=== PATIENT | male | born 1955 | race Caucasian/White ===

== ENCOUNTER 2023-09-21 14:45 | Inpatient (IN) | payer OTHER ==
[2023-09-21 16:39] VITALS: BMI 30.2
[2023-09-21] MEDS ORDERED: guaiFENesin 600 MG TABLET.ER (FP) PO PRN (19:11)
[2023-09-21] MEDS ORDERED: IBUPROFEN 400 MG TABLET (FP) PO PRN (19:11)
[2023-09-21] MEDS ORDERED: NICOTINE POLACRILEX 2 MG GUM BUC PRN (19:11)
[2023-09-21] MEDS ORDERED: BISMUTH SUBSALICYLATE 524 MG/30 ML PO PRN (19:11)
[2023-09-21] MEDS ORDERED: MAGNESIUM HYDROX 2400MG/30ML ORAL SUSPENSION 30 ML CUP PO PRN (19:11)
[2023-09-21] MEDS ORDERED: ACETAMINOPHEN 325 MG TABLET (FP) PO PRN (19:11)
[2023-09-21] MEDS ORDERED: BENZONATATE 200 MG CAPSULE PO PRN (19:11)
[2023-09-21] MEDS ORDERED: IBUPROFEN 600 MG TABLET (FP) PO PRN (19:11)
[2023-09-21] MEDS ORDERED: MAG HYDROX/AL HYDROX/SIMETH 30 ML UNIT-DOSE CUP PO PRN (19:11)
[2023-09-21] MEDS ORDERED: P-EPHED 60MG/TRIPROLIDI 2.5MG TABLET PO PRN (19:11)
[2023-09-21] MEDS ORDERED: POLYETHYLENE GLYCOL (HEALTHYLAX) 3350 17 GM PACKET PO PRN (19:11)
[2023-09-21] MEDS ORDERED: BENZOCAINE/MENTHOL (CHLORASEPTIC ) LOZENGE MM PRN (19:11)
[2023-09-21] MEDS ORDERED: LOPERAMIDE HCL 2 MG CAPSULE PO PRN (19:11)
[2023-09-21] MEDS ORDERED: ONDANSETRON *ODT* 4 MG TABLET SL PRN (19:11)
[2023-09-21] MEDS ORDERED: chlordiazePOXIDE HCL 25 MG CAPSULE PO ONE (20:00)
[2023-09-21] MEDS ORDERED: chlordiazePOXIDE HCL 25 MG CAPSULE PO PRN (20:03)
[2023-09-21] MEDS ORDERED: chlordiazePOXIDE HCL 25 MG CAPSULE ONE (20:05)
[2023-09-21] MEDS: THIAMINE HCL 100 MG TABLET (FP) PO SCH (22:22)
[2023-09-21] MEDS: MELATONIN 5 MG TABLETS PO SCH (22:22)
[2023-09-21] MEDS: chlordiazePOXIDE HCL 25 MG CAPSULE PO SCH (22:23)
[2023-09-22] MEDS: chlordiazePOXIDE HCL 25 MG CAPSULE PO SCH ×4 (05:17→22:34)
[2023-09-22] MEDS: PRENATAL VITAMINS W/ FOLIC ACID TABLET (FP) PO SCH (10:12)
[2023-09-22 11:42] LABS: POTASSIUM 3.7 mmol/L (3.5-5.1)
[2023-09-22 11:48] LABS: CALCIUM 8.3 mg/dL (8.5-10.1)
[2023-09-22 11:49] LABS: ALBUMIN 3.3 g/dl (3.4-5.0); BLOOD UREA NITROGEN 15.2 mg/dL (7-18)
[2023-09-22 11:52] LABS: CREATININE 0.8 mg/dL (0.55-1.3)
[2023-09-22 11:53] LABS: BILIRUBIN,TOTAL 0.7 mg/dL (0.2-1); TOT PROT 6.4 g/dl (6.4-8.2)
[2023-09-22] MEDS: THIAMINE HCL 100 MG TABLET (FP) PO SCH (22:39)
[2023-09-22] MEDS: MELATONIN 5 MG TABLETS PO SCH (22:39)
[2023-09-23] MEDS: chlordiazePOXIDE HCL 25 MG CAPSULE PO SCH ×4 (05:35→22:22)
[2023-09-23] MEDS: PRENATAL VITAMINS W/ FOLIC ACID TABLET (FP) PO SCH (10:23)
[2023-09-23] MEDS: NICOTINE 14 MG/24 HOURS TOPICAL PATCH TD SCH (14:54)
[2023-09-23] MEDS: metFORMIN HCL 500 MG TABLET (FP) PO SCH (17:28)
[2023-09-23] MEDS: MELATONIN 5 MG TABLETS PO SCH (22:22)
[2023-09-23] MEDS: THIAMINE HCL 100 MG TABLET (FP) PO SCH (22:22)
[2023-09-24] MEDS ORDERED: chlordiazePOXIDE HCL 10 MG CAPSULE PO PRN
[2023-09-24] MEDS: chlordiazePOXIDE HCL 10 MG CAPSULE PO SCH ×4 (06:00→22:16)
[2023-09-24] MEDS: metFORMIN HCL 500 MG TABLET (FP) PO SCH (07:24)
[2023-09-24] MEDS: PRENATAL VITAMINS W/ FOLIC ACID TABLET (FP) PO SCH (10:18)
[2023-09-24] MEDS: NICOTINE 14 MG/24 HOURS TOPICAL PATCH TD SCH (10:19)
[2023-09-24] MEDS: TAMSULOSIN HCL 0.4 MG CAP PO SCH (15:27)
[2023-09-24] MEDS ORDERED: glipiZIDE 5 MG TABLET (FP) PO SCH (16:30)
[2023-09-24] MEDS ORDERED: glipiZIDE-XL 5 MG TAB.ER.24 PO SCH (16:30)
[2023-09-24] MEDS: THIAMINE HCL 100 MG TABLET (FP) PO SCH (22:15)
[2023-09-24] MEDS: MELATONIN 5 MG TABLETS PO SCH (22:15)
[2023-09-25] MEDS: chlordiazePOXIDE HCL 10 MG CAPSULE PO SCH ×2 (05:15→17:28)
[2023-09-25] MEDS: glipiZIDE-XL 5 MG TAB.ER.24 PO SCH (06:30)
[2023-09-25] MEDS: NICOTINE 14 MG/24 HOURS TOPICAL PATCH TD SCH (10:50)
[2023-09-25] MEDS: PRENATAL VITAMINS W/ FOLIC ACID TABLET (FP) PO SCH (10:50)
[2023-09-25] MEDS: TAMSULOSIN HCL 0.4 MG CAP PO SCH (10:50)
[2023-09-25] MEDS: THIAMINE HCL 100 MG TABLET (FP) PO SCH (21:33)
[2023-09-25] MEDS: MELATONIN 5 MG TABLETS PO SCH (21:33)
[2023-09-26] MEDS ORDERED: chlordiazePOXIDE HCL 10 MG CAPSULE PO ONE (05:00)
[2023-09-26] MEDS: glipiZIDE-XL 5 MG TAB.ER.24 PO SCH (06:08)
[2023-09-26 06:14] VITALS: TEMP 97.6
[2023-09-26] MEDS: TAMSULOSIN HCL 0.4 MG CAP PO SCH (08:55)
[2023-09-26 09:06] VITALS: BP 108/73; PULSE 79; RESP 19
[2023-09-26] MEDS: PRENATAL VITAMINS W/ FOLIC ACID TABLET (FP) PO SCH (09:18)
[2023-09-26] MEDS: NICOTINE 14 MG/24 HOURS TOPICAL PATCH TD SCH (09:18)
== END 2023-09-26 08:56 | disposition home or self-care (01) | DRG 897 ==
LOC: YASAS 14:45 → Y3N 19:45
PROVIDERS: ADMIT Allergy & Immunology; ATTEND Surgery
PROC: HZ2ZZZZ Detoxification Services for Substance Abuse Treatment (ICD-10-PCS; principal; 2023-09-21)
DX: F10.230 Alcohol dependence with withdrawal, uncomplicated (principal); F17.210 Nicotine dependence, cigarettes, uncomplicated; I10 Essential (primary) hypertension; E11.9 Type 2 diabetes mellitus without complications; Z79.84 Long term (current) use of oral hypoglycemic drugs
CPT/HCPCS: 36415; 80053; 82962; 83036; 86780; 87635